=== PATIENT | female | born 1985 | race American Indian/Alaskan Native ===

== ENCOUNTER 2017-06-11 13:10 | Outpatient (CLI) | payer MEDICAID ==
[2017-06-11] MEDS ORDERED: LACTATED RINGERS 1,000 ML ONE (13:46)
[2017-06-11] MEDS ORDERED: LACTATED RINGERS 500 ML IV ONE (13:53)
[2017-06-11] MEDS ORDERED: BRETHINE SUB-Q ONE ×2 (15:17→18:38)
--- NOTE | 2017-06-11 17:09 | Ultrasound Report ---
FINAL REPORT PROCEDURE: US OB LIMITED TECHNIQUE: Real-time limited sonographic examination was performed for evaluation of cervix length CPT 11396 HISTORY: cervical length COMPARISON: No prior studies are available for comparison. FINDINGS: Twin intrauterine gestations are present however only the head of 1 of the fetus is visualized in the vertex presentation adjacent to the cervix. Cervix length is 3.2 centimeter. No funneling is visualized. No evidence of placenta previa. IMPRESSION: Cervix length 3.2 centimeter. No evidence of funneling or placenta previa. Twin pregnancies are present however only the head of 1 of the fetus is visualize, baby a in the vertex presentation.
[2017-06-11] MEDS ORDERED: PROCARDIA*For Tocolysis only PO ONE (18:36)
--- NOTE | 2017-06-11 19:08 | Ultrasound Report ---
FINAL REPORT EXAM: US OB BPP WO NON-STRESS HISTORY: PTL twins TECHNIQUE: Biophysical profile PRIORS: None currently available. FINDINGS: Twin pregnancies identified Baby A: Presentation: Cephalic. Head maternal right. heart rate: 141 BPM Largest vertical pocket: 8.4 cm. Borderline abnormal. Breathin Gross Body Movements: 2 Tone: 2 Qualitative AFV: 2 Baby B: Presentation: Transverse. heart rate: 156 BPM Largest vertical pocket: 5.6 cm. Within normal limits. Breathin Gross Body Movements: 2 Tone: 2 Qualitative AFV: 2 IMPRESSION: Baby A: Biophysical profile score 8/8. Largest vertical pocket: 8.4 cm. Borderline abnormal. Baby B: Biophysical profile score 8/8.
--- NOTE | 2017-06-11 19:08 | Ultrasound Report ---
FINAL REPORT EXAM: US OB BPP EA ADD EXAM HISTORY: PTL twins TECHNIQUE: Biophysical profile PRIORS: None currently available. FINDINGS: Twin pregnancies identified Baby A: Presentation: Cephalic. Head maternal right. heart rate: 141 BPM Largest vertical pocket: 8.4 cm. Borderline abnormal. Breathin Gross Body Movements: 2 Tone: 2 Qualitative AFV: 2 Baby B: Presentation: Transverse. heart rate: 156 BPM Largest vertical pocket: 5.6 cm. Within normal limits. Breathin Gross Body Movements: 2 Tone: 2 Qualitative AFV: 2 IMPRESSION: Baby A: Biophysical profile score 8/8. Largest vertical pocket: 8.4 cm. Borderline abnormal. Baby B: Biophysical profile score 8/8.
[2017-06-12] MEDS ORDERED: CELESTONE SOLUSPAN IM SCH (18:35)
== END 2017-06-11 19:53 | disposition home or self-care (01) ==
LOC: TRG 13:10
PROVIDERS: ATTEND Obstetrics & Gynecology
DX: O30.003 Twin pregnancy, unspecified number of placenta and unspecified number of amniotic sacs, third trimester (principal); O32.2XX2 Maternal care for transverse and oblique lie, fetus 2; O47.03 False labor before 37 completed weeks of gestation, third trimester; Z3A.29 29 weeks gestation of pregnancy
CPT/HCPCS: 36415; 59025; 76815; 76819; 82731; 96360; 96361; 96372; J3105; J7120

== ENCOUNTER 2017-06-12 23:49 | Outpatient (CLI) | payer MEDICAID ==
[2017-06-13] MEDS ORDERED: NACL 0.9% 1000 ML 1,000 ML ONE (00:48)
[2017-06-13] MEDS ORDERED: BRETHINE ONE (00:53)
[2017-06-13] MEDS ORDERED: BRETHINE SUB-Q SCH ×2 (01:30→02:37)
[2017-06-13] MEDS ORDERED: CELESTONE SOLUSPAN IM ONE ×2 (02:02→02:16)
[2017-06-13] MEDS: CELESTONE SOLUSPAN IM SCH (02:34)
[2017-06-13] MEDS ORDERED: AMBIEN PO PRN (02:36)
[2017-06-13] MEDS ORDERED: PROCARDIA*For Tocolysis only PO PRN (02:38)
[2017-06-13] MEDS ORDERED: MAGNESIUM SULFATE 40GM/1000ML 40 GM/1,000 ML BAG IV SCH ×2 (03:45→12:00)
[2017-06-13] MEDS ORDERED: ceFAZolin 2 GM in NACL 0.9% 100 ML IV ONE (03:48)
[2017-06-13] MEDS ORDERED: LACTATED RINGERS 1,000 ML IV SCH (04:00)
[2017-06-13] MEDS ORDERED: MAGNESIUM SULFATE 4GM/100ML 4 GM/100 ML BAG IV ONE (04:00)
[2017-06-13] MEDS ORDERED: ANCEF/STERILE WATER 2 GM/20 ML 2 GM/20 ML SYRINGE IV ONE (04:15)
[2017-06-13 05:57] LABS: Amphetamine Screen,Urine PRESUMPTIVE NEGATIVE; Benzodiazepines Screen,Urine PRESUMPTIVE NEGATIVE; Cannabinoid Screen,Urine PRESUMPTIVE NEGATIVE; Cocaine Screen,Urine PRESUMPTIVE NEGATIVE; Methadone Screen,Urine PRESUMPTIVE NEGATIVE; Opiate Screen,Urine PRESUMPTIVE NEGATIVE
--- NOTE | 2017-06-13 08:32 | Consultation ---
History of Present Illness Reason for consult: contractions (Patient is 32 y.o G 3P2 with ALISON of . Followed by [facility] for DI/DI twin gestations with Polyhydramnios and Twin B IUGR . Aiden presented to [facility] L+D with ctx. Reported ctx started 06/12/17 @ 2100. Patient denied VB, ABD pain, and SOB. Patient reported AFM x 2 . TOCO- Ctx Q 4-5 min while on MgSO4 1.5 mg /hr BMZ for FLM in progress. No US ordered by Primary OB ) Past History - Obstetrical History : 3 Medications and Allergies Allergies Allergy/AdvReac Type Severity Reaction Status Date / Time Latex, Natural Rubber Allergy Rash Verified 06/11/17 13:51 Home Medications Medication Instructions Recorded Confirmed Last Taken Type No Known Home Medications [No 06/13/17 06/13/17 Unknown History Reported Home Medications] Active Meds: Active Medications Betamethasone Acet/Betameth SodPhos (Celestone Soluspan) 12 mg IM Q24H AVEL Stop: 06/14/17 02:31 Lactated Ringer's (Lactated Ringers) 1,000 mls @ 125 mls/hr IV DIRECT AVEL Last Admin: 06/13/17 04:45 Dose: 125 mls/hr Magnesium Sulfate (Magnesium Sulfate 40gm/1000ml) 40 gm in 1,000 mls @ 37.5 mls /hr IV DIRECT AVEL Last Admin: 06/13/17 06:00 Dose: 1.5 gm/hr, 37.5 mls/hr Magnesium Sulfate (Magnesium Sulfate 40gm/1000ml) 40 gm in 1,000 mls @ 50 mls/ hr IV DIRECT AVEL Nifedipine (Procardia*For Tocolysis Only*) 10 mg PO Q6HR PRN PRN Reason: Labor Pain Terbutaline Sulfate (Brethine) 0.25 mg SUB-Q Q20MIN AVEL Stop: 06/15/17 01:01 Zolpidem Tartrate (Ambien) 10 mg PO QHS PRN PRN Reason: Insomnia Review of Systems Constitutional: no fever, no chills Eyes: deferred Ears, nose, mouth and throat: deferred Cardiovascular: no chest pain, no rapid/irregular heart beat, no edema, no shortness of breath, no high blood pressure Respiratory: no shortness of breath Gastrointestinal: no abdominal pain Genitourinary: no vaginal bleeding, no vaginal discharge, no leakage of fluid, no pelvic pain Rectal Exam: deferred Integumentary: no rash Neurological: no headaches Endocrine: no polyuria Allergic/Immunologic: no wheezing - Vital Signs Vital signs: Vital Signs Temp Pulse Resp BP Pulse Ox 98.0 F 102 H 12 107/62 97 06/13/17 06:00 06/13/17 06:00 06/13/17 06:00 06/13/17 06:00 06/13/17 06:00 Temp Pulse Resp BP Pulse Ox 97.8 F 94 H 18 108/65 98 06/13/17 07:56 06/13/17 07:56 06/13/17 07:56 06/13/17 07:56 06/13/17 07:56 - Physical Exam Breasts: Positive: deferred Cardiovascular: Regular rate Lungs: Positive: Normal air movement Abdomen: Negative: tenderness Uterus: Negative: tender Extremities: Negative: edema Deep Tendon Reflex Grade: Normal +2 - Obstetrical FHR: category 1 (For 29 weeks Twin gestation ) Uterine Contraction Monitor Mode: External Cervical Dilatation: 0 (closed per L+D staff ) Uterine Contraction Pattern: Irregular (4-5 min) Uterine Contraction Intensity: Mild Results All other labs normal. Assessment and Plan A: IUP 29.4 weeks DI/DI Twin gestation 06/07/17 [facility] Polyhydramnios assessment for Twin A and Twin B contractions while on MgSO4 1.5 mg /hr BMZ for FLM in progress 05/21/17 Twin A - SGA 05/21/17 Twin B - IUGR 05/21/17 Twin B with EIF Sequential Screen was initial performed by [facility] -NO result was provided History of previous C/S P: Given the current findings, the likelihood for imminent premature delivery appears UNCLEAR . RECOMMENDATIONS: 1. I am in agreement with admission and the administration of corticosteroids to enhance lung maturity. 2. As always, a complete check for urinary and cervico-vaginal infection should be pursued during this admission. Accordingly we would obtain and follow -up the results of a wet prep for bacterial vaginosis and a urine culture to rule out subclinical UTI and asymptomatic bacteriuria. 3. As always, I would abandon all attempts of tocolysis in the presence of and SVE > 5cm, SROM, unexplained vaginal bleeding or a non- reassuring heart rate pattern. 4. If discharged, this patient will require intermittent sonographic cervical follow-up as dictated by symptoms or until 34 weeks gestation. 5. Obtain PNR and all labs 6. Obtain BPP and growth for Twin gestation 7. Increase MgSO4 to 2 gm /hr 8. We will be happy to follow this patient with you. 9. Document GTT result
[2017-06-13] MEDS ORDERED: STADOL IV ONE (13:00)
--- NOTE | 2017-06-13 13:28 | History and Physical Report ---
History of Present Illness Date of examination: 06/13/17 Chief complaint: IUP @ 29 4/7 weeks; Twin gestation; PTL History of present illness: Pt is a 32yo BF EDC 08/25/17; EGA 29 4/7 weeks with Twin gestation, presented to [facility] L&D complaining of RUC's q 3-4 mins. She received care at [facility] since 19 weeks and also followed by [facility] for Twin gestation (Di/Di) with IUGR for Twin B. She has a history of previous C Section for previous twins. She has been started on Magnesium sulfate for tocolysis and currently on 2gm/hr, and Steroids for FLM, and still fabrice irregularly. She was seen by [facility] today, and records are available. 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 Family/Genetic History: hypertension Social history: no significant social history, single - Obstetrical History Expected Date of Delivery: 08/25/17 Actual Gestation: 29 Week(s) 4 Day(s) : 3 Medications and Allergies Allergies Allergy/AdvReac Type Severity Reaction Status Date / Time Latex, Natural Rubber Allergy Rash Verified 06/11/17 13:51 Home Medications Medication Instructions Recorded Confirmed Last Taken Type No Known Home Medications [No 06/13/17 06/13/17 Unknown History Reported Home Medications] Active Meds: Active Medications Betamethasone Acet/Betameth SodPhos (Celestone Soluspan) 12 mg IM Q24H AVEL Stop: 06/14/17 02:31 Lactated Ringer's (Lactated Ringers) 1,000 mls @ 125 mls/hr IV DIRECT AVEL Last Admin: 06/13/17 04:45 Dose: 125 mls/hr Magnesium Sulfate (Magnesium Sulfate 40gm/1000ml) 40 gm in 1,000 mls @ 37.5 mls /hr IV DIRECT AVEL Last Admin: 06/13/17 06:00 Dose: 1.5 gm/hr, 37.5 mls/hr Magnesium Sulfate (Magnesium Sulfate 40gm/1000ml) 40 gm in 1,000 mls @ 50 mls/ hr IV DIRECT AVEL Nifedipine (Procardia*For Tocolysis Only*) 10 mg PO Q6HR PRN PRN Reason: Labor Pain Terbutaline Sulfate (Brethine) 0.25 mg SUB-Q Q20MIN AVEL Stop: 06/15/17 01:01 Zolpidem Tartrate (Ambien) 10 mg PO QHS PRN PRN Reason: Insomnia Review of Systems All systems: negative - Vital Signs Vital signs: Vital Signs Temp Pulse Resp BP Pulse Ox 98.0 F 102 H 12 107/62 97 06/13/17 06:00 06/13/17 06:00 06/13/17 06:00 06/13/17 06:00 06/13/17 06:00 Temp Pulse Resp BP Pulse Ox 98.0 F 96 H 16 104/64 97 06/13/17 11:30 06/13/17 11:30 06/13/17 11:30 06/13/17 11:30 06/13/17 11:30 - Physical Exam Breasts: Positive: deferred Cardiovascular: Regular rate Lungs: Positive: Clear to auscultation Abdomen: Positive: normal appearance Genitourinary (Female): Positive: normal external genitalia Uterus: Positive: enlarged Adnexa: right: normal Extremities: Positive: normal - Obstetrical FHR: category 1 Uterine Contraction Monitor Mode: External Cervical Dilatation: 0 (per nurse) Cervical Effacement Percentage: 0 (per nurse) Uterine Contraction Pattern: Regular Uterine Tone Measurement Phase: Contraction Uterine Contraction Intensity: Moderate Results Abnormal lab results 06/13/17 Range/Units 10:30 Magnesium 4.50 H (1.7-2.3) mg/dL All other labs normal. Ultrasound: report reviewed (Twin A - Cephalic, EFW 1282gms; Twin B - Transverse , EFW 1298gms) Assessment and Plan - Patient Problems (1) 29 weeks gestation of Onset Date: 06/13/17 Current Visit: Yes Status: Acute Plan to address problem: A: IUP 29 4/7 weeks DI/DI Twin gestation - 05/21/17 Twin A - SGA 05/21/17 Twin B - IUGR 05/21/17 Twin B with EIF 06/07/17 u/s with [facility] Polyhydramnios assessment for Twin A and Twin B contractions while on MgSO4 1.5 mg /hr BMZ for FLM in progress P: Admit to L&D for IV hydration, IV tocolysis, steroids and antibiotics Will increase Magnesium sulfate to 2gm/hr Appreciate [facility] consultation (2) Twin gestation in third trimester Onset Date: 06/13/17 Current Visit: Yes Status: Acute Qualifiers: Multiple gestation type: dichorionic and diamniotic Qualified Code(s): O30.043 - Twin , dichorionic/diamniotic, third trimester
--- NOTE | 2017-06-13 18:02 | Event Note ---
Date: 06/13/17 Assumed care of above. The patient is 32-year-old at 29 weeks with Di Di twins. Patient admitted for concerns about labor, she was started on magnesium and Celestone course in progress. also complicated by IUGR from sonograms obtained in May 2012. She is being followed by M. She was seen in triage on 06/11/2017 with similar complaints. BPP obtained then was 8 out of 8, Baby A is cephalic and Baby B is transverse. She was discharged home on Procardia. On present admission, MFM consult today reviewed. She is status post Celestone course #1 yesterday at 2 AM and will complete series tomorrow at 2 AM She is on magnesium at 2 g per hour Growth scan obtained, await official radiology report. Wet prep is negative Currently has category 1 tracing with occasional intermittent contractions on toco (asymptomatic) Discussed briefly plan of care with patient. Will complete Celestone course tomorrow AM and consider discontinuing magnesium soon after. We'll observe patient for 24 hours in-house and then discharge home if remains stable Discussed briefly permanent sterilization. Discussed risks and issues related to this. Reviewed other methods of conception including long-acting reversible contraception. 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 She will think about this and decide on an option later.
[2017-06-13] MEDS: TYLENOL PO PRN (19:44)
[2017-06-13] MEDS ORDERED: NORMOSOL-R PH 7.4 1,000 ML IV ONE (23:49)
[2017-06-14] MEDS: CELESTONE SOLUSPAN IM SCH (02:34)
--- NOTE | 2017-06-14 07:49 | Ultrasound Report ---
OB ULTRASOUND GREATER THAN 14 WEEKS - TWINS INDICATION: labor. Twin . COMPARISON: 06/11/2017 TECHNIQUE: Transabdominal grayscale ultrasound with Doppler interrogation. BABY A: Gestation: Twin A Position: Cephalic Amniotic Fluid: Twin - Largest vertical pocket 5 cm (2-8 cm Normal) Placenta: Anterior, right lateral Placental Grade: I Heart Rate: 130 BPM ANATOMY VISUALIZED: Stomach Bladder Diaphragm 4 Chamber Heart Heart 3 Vessel Cord Abd. Cord Insert SPINE VISUALIZED: Limited spine due to position The following are not demonstrated due to maternal body habitus or lie: Neuroanatomy, kidneys, spine BPD: 7.6 cm = 30 w 3 d HC: 28.4 cm = 31 w 1 d AC: 24.4 cm = 28 w 4 d FL: 5.3 cm = 28 w 0 d HC/AC Ratio: 1.17 Cephalic Index: 79.8 Estimated Weight: 1282 grams LMP: 11/18/2016 Clinical age = 29 w 4 d EDC: 08/25/2017 US Gest. Age = 29 w 4 d EDC: 08/25/2017 BABY B: Gestation: Twin B Position: Transverse, head maternal left Amniotic Fluid: Twin - Largest vertical pocket 5.1 cm (2-8 cm Normal) Placenta: Anterior, right lateral Placental Grade: I Heart Rate: 139 BPM NEUROANATOMY VISUALIZED: Choroid Plexus Cisterna Magnum Cerebellum ANATOMY VISUALIZED: Bladder Diaphragm 4 Chamber Heart Heart 3 Vessel Cord Abd. Cord Insert SPINE VISUALIZED: Limited spine due to position The following are not demonstrated due to maternal body habitus or lie: Lateral ventricle, stomach, kidneys, spine BPD: 7.7 cm = 31 w 0 d HC: 27.9 cm = 30 w 4 d AC: 24.3 cm = 28 w 4 d FL: 5.4 cm = 28 w 3 d HC/AC Ratio: 1.15 Cephalic Index: 88.1 Estimated Weight: 1298 grams LMP: 11/18/2016 Clinical age = 29 w 4 d EDC: 08/25/2017 US Gest. Age = 29 w 5 d EDC: 08/24/2017 CONCLUSION: Twin, viable intrauterine gestations with details, as above. Thank you for the opportunity to participate in this patient's care.
--- NOTE | 2017-06-14 09:03 | Consultation ---
History of Present Illness Reason for consult: other ( contractions (Patient is 32 y.o G 3P2 29.5 weeks with ALISON of 08/25/17 . Followed by [facility] for DI/DI twin gestations with Polyhydramnios and Twin B IUGR . On 06/12/17 presented to [facility] L+D with ctx . Reported ctx started 06/12/17 @ 2100. Patient denied VB, ABD pain, and SOB. Patient reported AFM x 2 . Reported Occ CtX TOCO- Under no MgSO4 -Occ contractions BMZ for FLM completed . 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 Family/Genetic History: hypertension - Obstetrical History : 3 Medications and Allergies Allergies Allergy/AdvReac Type Severity Reaction Status Date / Time Latex, Natural Rubber Allergy Rash Verified 06/11/17 13:51 Home Medications Medication Instructions Recorded Confirmed Last Taken Type No Known Home Medications [No 06/13/17 06/13/17 Unknown History Reported Home Medications] Active Meds: Active Medications Acetaminophen (Tylenol) 650 mg PO Q6H PRN PRN Reason: Pain, Mild (1-3) Last Admin: 06/13/17 19:44 Dose: 650 mg Lactated Ringer's (Lactated Ringers) 1,000 mls @ 125 mls/hr IV DIRECT AVEL Last Admin: 06/13/17 04:45 Dose: 125 mls/hr Magnesium Sulfate (Magnesium Sulfate 40gm/1000ml) 40 gm in 1,000 mls @ 37.5 mls /hr IV DIRECT AVEL Last Infusion: 06/14/17 03:55 Dose: 1 gm/hr, 25 mls/hr Magnesium Sulfate (Magnesium Sulfate 40gm/1000ml) 40 gm in 1,000 mls @ 50 mls/ hr IV DIRECT AVEL Last Admin: 06/14/17 02:20 Dose: 2 gm/hr, 50 mls/hr Terbutaline Sulfate (Brethine) 0.25 mg SUB-Q Q20MIN AVEL Stop: 06/15/17 01:01 Zolpidem Tartrate (Ambien) 10 mg PO QHS PRN PRN Reason: Insomnia Review of Systems Constitutional: no fever Eyes: no blurred vision, no photophobia Ears, nose, mouth and throat: deferred Cardiovascular: no rapid/irregular heart beat, no edema, no syncope, no shortness of breath Respiratory: no shortness of breath Gastrointestinal: no abdominal pain, no nausea, no vomiting Genitourinary: contractions (occasional ), no vaginal bleeding, no vaginal discharge, no pelvic pain Rectal Exam: deferred Musculoskeletal: no low back pain Integumentary: no rash Neurological: no headaches Endocrine: no polyuria Hematologic/Lymphatic: no easy bruising, no easy bleeding - Vital Signs Vital signs: Vital Signs Temp Pulse Resp BP Pulse Ox 98.0 F 102 H 12 107/62 97 06/13/17 06:00 06/13/17 06:00 06/13/17 06:00 06/13/17 06:00 06/13/17 06:00 Temp Pulse Resp BP Pulse Ox 98.0 F 98 H 12 95/53 96 06/13/17 19:05 06/14/17 00:33 06/13/17 19:05 06/14/17 00:33 06/13/17 19:05 - Physical Exam Breasts: Positive: deferred Cardiovascular: Regular rate Lungs: Positive: Normal air movement Abdomen: Negative: tenderness, guarding Uterus: Negative: tender Extremities: Negative: tenderness Deep Tendon Reflex Grade: Normal +2 - Obstetrical FHR: category 1 (for 29 weeks ) Uterine Contraction Monitor Mode: External Uterine Contraction Pattern: Irregular (Occasional) Uterine Contraction Intensity: Mild Results Abnormal lab results 06/13/17 06/13/17 06/14/17 Range/Units 10:30 18:24 01:59 Magnesium 4.50 H 5.60 H 5.90 H (1.7-2.3) mg/dL 06/14/17 Range/Units 05:49 Magnesium 5.70 H (1.7-2.3) mg/dL All other labs normal. Ultrasound: report reviewed (Please see chart for [facility] for full report for Twin A and Twin B ) Assessment and Plan A: IUP 29.5 weeks DI/DI Twin gestation 06/07/17 [facility] Polyhydramnios assessment for Twin A and Twin B 06/12/17 [facility] Reassuring MVP for Twin A and Twin B . Polyhydramnos resolved While under no MgSO4 Occasional contractions reported BMZ for FLM completed 05/21/17 Twin A - SGA 05/21/17 Twin B - IUGR 06/14/17 [facility] Twin B SGA with EFW 15% 3 [facility] Twin A SGA with EFW 13% 05/21/17 Twin B with EIF Sequential Screen was initial performed by [facility] -NO result was provided History of previous C/S Twin presentation - VTX/ Transverse P: Given the current findings, the likelihood for imminent premature delivery appears UNCLEAR . RECOMMENDATIONS: 1. I am in agreement with continued admission . 2. As always, a complete check for urinary and cervico-vaginal infection should be pursued during this admission. Accordingly we would obtain and follow -up the results of a wet prep for bacterial vaginosis and a urine culture to rule out subclinical UTI and asymptomatic bacteriuria. 3. As always, I would abandon all attempts of tocolysis in the presence of and SVE > 5cm, SROM, unexplained vaginal bleeding or a non- reassuring heart rate pattern. 4. If discharged, this patient will require intermittent sonographic cervical follow-up as dictated by symptoms or until 34 weeks gestation. 5. Obtain PNR and all labs please include [facility] records 6. We will be happy to follow this patient with you. 9. Document GTT result
--- NOTE | 2017-06-14 10:28 | Progress Note ---
Assessment and Plan - Patient Problems (1) 29 weeks gestation of Current Visit: Yes Status: Acute (2) Twin gestation in third trimester Current Visit: Yes Status: Acute (3) contractions Current Visit: Yes Status: Acute Plan to address problem: [facility] consult was done. Celestone series completed. Magnesium discontinued. Will continue and toco monitoring for another 24 hours off the magnesium. Will monitor cervical changes if patient has contractions. Findings were discussed with the patient. (4) Previous section Current Visit: Yes Status: Acute Plan to address problem: Patient did want , but she was told that baby B is in a transverse lie. If delivery becomes necessary, she will need a repeat C/section due to gestation and lie. She says that she would agree with whatever is recommended. Subjective - Subjective Date of service: 06/14/17 Principal diagnosis: Twins gestation at 29 weeks with contractions. Interval history: Patient was admitted early on 06/13 for contractions. On admission, she was fabrice every 3-4 mins and tracing were reassuring. Sonogram showed baby A to be VTX and SGA and B to be transverse and IUGR. She was given celestone for FLM, 2 doses completed this AM, magnesium sulfate which was discontinued this AM, IV antibiotics. Cervical cultures were negative. [facility] saw the patient this AM and recommended continued and toco monitoring for another 24 hours. This AM, patient denies any frequent contraction, but reports occasional cramps. She denies any fluid leakage or bleeding. Cervix: closed/80%/-2. Objective - Vital Signs Vital Signs: Vital Signs - 12hr 06/13/17 06/13/17 06/14/17 22:33 23:34 00:03 Temperature Pulse Rate 100 H 93 H 98 H Respiratory Rate Blood Pressure 100/58 88/53 90/55 [Right] 06/14/17 06/14/17 00:33 08:45 Temperature 97.8 F Pulse Rate 98 H 101 H Respiratory 16 Rate Blood Pressure 95/53 92/55 [Right] - Exam Cardiovascular: Normal S1, Normal S2 Lungs: Clear to auscultation Vulva: both: normal FHR: category 1 Uterine Contraction Monitor Mode: External Cervical Dilatation: 0 Cervical Effacement Percentage: 80 station: -2 Uterine Contraction Pattern: Irregular Uterine Contraction Intensity: Mild Deep Tendon Reflex Grade: Normal +2 - Labs Labs: Abnormal Labs 06/13/17 06/13/17 06/14/17 10:30 18:24 01:59 Magnesium 4.50 H 5.60 H 5.90 H 06/14/17 05:49 Magnesium 5.70 H Laboratory Results - last 24 hr 06/13/17 06/13/17 06/14/17 10:30 18:24 01:59 Magnesium 4.50 H 5.60 H 5.90 H 06/14/17 05:49 Magnesium 5.70 H
[2017-06-14 10:54] LABS: Bacteria,Urine 1+ /HPF (Negative); Bilirubin,Urine NEG (Negative); Blood,Urine MOD (Negative); Color,Urine Yellow (Yellow); Mucus,Urine FEW /HPF; Protein,Urine <15 mg/dL mg/dL (Negative); Urobilinogen,Urine < 2.0 mg/dL (<2.0); WBC,Urine < 1.0 /HPF (0.0-6.0)
[2017-06-14] MEDS: NORMOSOL-R PH 7.4 1,000 ML IV SCH (15:40)
[2017-06-14] MEDS ORDERED: NORMOSOL-R PH 7.4 1,000 ML IV ONE (15:42)
[2017-06-15] MEDS: NORMOSOL-R PH 7.4 1,000 ML IV SCH ×3 (10:06→21:22)
[2017-06-15] MEDS ORDERED: TYLENOL PO ONE (10:20)
[2017-06-15] MEDS ORDERED: BRETHINE SUB-Q ONE (11:53)
--- NOTE | 2017-06-15 12:02 | Progress Note ---
Assessment and Plan - Patient Problems (1) 29 weeks gestation of Current Visit: Yes Status: Acute (2) Twin gestation in third trimester Current Visit: Yes Status: Acute Qualifiers: Multiple gestation type: dichorionic and diamniotic Qualified Code(s): O30.043 - Twin , dichorionic/diamniotic, third trimester (3) contractions Current Visit: Yes Status: Acute Plan to address problem: [facility] consult was done. Celestone series completed. Magnesium discontinued. Since contractions have returned, will give terbutakine x 1 dose followed by procardia every 4 hrs. Patient was told that if she does not respond to these meds, will restart magnesium. Will continue and toco monitoring for another 24 hours off the magnesium. BPP today. Will monitor cervical changes if contractions get worse. Findings were discussed with the patient. (4) Previous section Current Visit: Yes Status: Acute Plan to address problem: Patient did want , but she was told that baby B is in a transverse lie. If delivery becomes necessary, she will need a repeat C/section due to gestation and lie. She says that she would agree with whatever is recommended. Subjective - Subjective Date of service: 06/15/17 Principal diagnosis: Twins gestation at 29 weeks with contractions. Interval history: Patient was admitted early on 06/13 for contractions. On admission, she was fabrice every 3-4 mins and tracing were reassuring. Sonogram showed baby A to be VTX and SGA and B to be transverse and IUGR. She was given celestone for FLM, 2 doses completed, magnesium sulfate which was discontinued yesterday, and IV antibiotics. Cervical cultures were negative. [facility] saw the patient and recommended continued and toco monitoring for 24 hours after magnesium. This AM, patient complains of having irregular contractions but they have been mild and have not increased in intensity. She denies any fluid leakage or bleeding. Cervix: closed/80%/-2, unchanged from yesterday morning. Objective - Vital Signs Vital Signs: Vital Signs - 12hr 06/15/17 06/15/17 06/15/17 01:34 01:41 01:42 Temperature Pulse Rate 97 H 100 H 106 H Respiratory Rate Blood Pressure 87/51 98/53 Blood Pressure [Right] O2 Sat by Pulse 97 Oximetry 06/15/17 06/15/17 06/15/17 01:50 01:55 02:00 Temperature Pulse Rate 117 H 97 H 102 H Respiratory Rate Blood Pressure Blood Pressure [Right] O2 Sat by Pulse 97 97 95 Oximetry 06/15/17 06/15/17 06/15/17 02:01 02:05 02:10 Temperature Pulse Rate 107 H 100 H 95 H Respiratory Rate Blood Pressure Blood Pressure [Right] O2 Sat by Pulse 86 97 97 Oximetry 06/15/17 06/15/17 06/15/17 02:15 02:20 02:25 Temperature Pulse Rate 100 H 100 H 95 H Respiratory Rate Blood Pressure Blood Pressure [Right] O2 Sat by Pulse 96 96 94 Oximetry 06/15/17 06/15/17 06/15/17 02:30 02:35 02:40 Temperature Pulse Rate 102 H 104 H 102 H Respiratory Rate Blood Pressure Blood Pressure [Right] O2 Sat by Pulse 95 97 97 Oximetry 06/15/17 06/15/17 06/15/17 02:45 02:50 02:55 Temperature Pulse Rate 102 H 99 H 107 H Respiratory Rate Blood Pressure Blood Pressure [Right] O2 Sat by Pulse 97 96 97 Oximetry 06/15/17 06/15/17 06/15/17 03:00 03:05 03:10 Temperature Pulse Rate 104 H 105 H 97 H Respiratory Rate Blood Pressure Blood Pressure [Right] O2 Sat by Pulse 96 96 97 Oximetry 06/15/17 06/15/17 06/15/17 03:15 03:20 03:25 Temperature Pulse Rate 97 H 101 H 98 H Respiratory Rate Blood Pressure Blood Pressure [Right] O2 Sat by Pulse 97 97 96 Oximetry 06/15/17 06/15/17 06/15/17 03:30 03:35 03:40 Temperature Pulse Rate 99 H 96 H 106 H Respiratory Rate Blood Pressure Blood Pressure [Right] O2 Sat by Pulse 97 96 97 Oximetry 06/15/17 06/15/17 06/15/17 03:45 03:50 03:55 Temperature Pulse Rate 100 H 99 H 102 H Respiratory Rate Blood Pressure Blood Pressure [Right] O2 Sat by Pulse 95 96 96 Oximetry 06/15/17 06/15/17 06/15/17 04:00 04:05 04:10 Temperature Pulse Rate 100 H 99 H 97 H Respiratory Rate Blood Pressure Blood Pressure [Right] O2 Sat by Pulse 96 95 95 Oximetry 06/15/17 06/15/17 06/15/17 04:24 04:27 04:29 Temperature Pulse Rate 98 H 32 L 103 H Respiratory Rate Blood Pressure Blood Pressure [Right] O2 Sat by Pulse 98 89 94 Oximetry 06/15/17 06/15/17 06/15/17 04:34 04:39 04:44 Temperature Pulse Rate 100 H 106 H 104 H Respiratory Rate Blood Pressure Blood Pressure [Right] O2 Sat by Pulse 99 97 97 Oximetry 06/15/17 06/15/17 06/15/17 04:49 04:54 04:59 Temperature Pulse Rate 106 H 106 H 98 H Respiratory Rate Blood Pressure Blood Pressure [Right] O2 Sat by Pulse 97 97 97 Oximetry 06/15/17 06/15/17 06/15/17 05:04 05:09 05:10 Temperature Pulse Rate 102 H 103 H 99 H Respiratory Rate Blood Pressure Blood Pressure [Right] O2 Sat by Pulse 96 96 94 Oximetry 06/15/17 06/15/17 06/15/17 05:14 05:16 05:19 Temperature Pulse Rate 101 H 92 H 94 H Respiratory Rate Blood Pressure Blood Pressure [Right] O2 Sat by Pulse 95 94 96 Oximetry 06/15/17 06/15/17 06/15/17 05:24 05:29 05:31 Temperature Pulse Rate 99 H 97 H 96 H Respiratory Rate Blood Pressure Blood Pressure [Right] O2 Sat by Pulse 96 95 94 Oximetry 06/15/17 06/15/17 06/15/17 05:34 05:38 05:39 Temperature Pulse Rate 99 H 99 H 96 H Respiratory Rate Blood Pressure Blood Pressure [Right] O2 Sat by Pulse 95 94 95 Oximetry 06/15/17 06/15/17 06/15/17 05:44 05:49 05:50 Temperature Pulse Rate 100 H 101 H 103 H Respiratory Rate Blood Pressure Blood Pressure [Right] O2 Sat by Pulse 95 95 94 Oximetry 06/15/17 06/15/17 06/15/17 05:54 05:59 06:00 Temperature Pulse Rate 103 H 97 H 92 H Respiratory Rate Blood Pressure Blood Pressure [Right] O2 Sat by Pulse 95 95 94 Oximetry 06/15/17 06/15/17 06/15/17 06:04 06:09 06:14 Temperature Pulse Rate 110 H 93 H 98 H Respiratory Rate Blood Pressure Blood Pressure [Right] O2 Sat by Pulse 96 95 95 Oximetry 06/15/17 06/15/17 06/15/17 06:19 06:24 06:26 Temperature Pulse Rate 92 H 95 H 97 H Respiratory Rate Blood Pressure Blood Pressure [Right] O2 Sat by Pulse 96 95 94 Oximetry 06/15/17 06/15/17 06/15/17 06:29 06:34 06:39 Temperature Pulse Rate 99 H 93 H 98 H Respiratory Rate Blood Pressure Blood Pressure [Right] O2 Sat by Pulse 95 96 96 Oximetry 06/15/17 06/15/17 06/15/17 06:42 07:40 07:46 Temperature 99.1 F Pulse Rate 101 H 93 H 93 H Respiratory 16 Rate Blood Pressure 103/60 Blood Pressure 103/60 [Right] O2 Sat by Pulse 94 Oximetry 06/15/17 06/15/17 06/15/17 10:28 11:03 11:06 Temperature 98.5 F Pulse Rate 107 H 107 H Respiratory 16 16 Rate Blood Pressure 105/60 Blood Pressure 105/60 [Right] O2 Sat by Pulse 98 Oximetry 06/15/17 11:08 Temperature Pulse Rate 107 H Respiratory Rate Blood Pressure Blood Pressure [Right] O2 Sat by Pulse 83 L Oximetry - Exam Cardiovascular: Normal S1, Normal S2 Lungs: Clear to auscultation Vulva: both: normal FHR: category 1 Uterine Contraction Monitor Mode: External Cervical Dilatation: 0 Cervical Effacement Percentage: 80 station: -2 Uterine Contraction Pattern: Irregular Uterine Contraction Intensity: Mild Deep Tendon Reflex Grade: Normal +2 - Labs Labs: Abnormal Labs 06/13/17 06/13/17 06/14/17 10:30 18:24 01:59 Magnesium 4.50 H 5.60 H 5.90 H 06/14/17 05:49 Magnesium 5.70 H
[2017-06-15] MEDS: PROCARDIA*For Tocolysis only PO SCH ×3 (15:34→23:21)
[2017-06-15] MEDS: TYLENOL PO PRN (19:20)
[2017-06-15] MEDS: AUGMENTIN 875 MG PO SCH (23:21)
[2017-06-16] MEDS: NORMOSOL-R PH 7.4 1,000 ML IV SCH ×4 (03:50→22:53)
[2017-06-16] MEDS: PROCARDIA*For Tocolysis only PO SCH ×6 (03:50→22:26)
--- NOTE | 2017-06-16 09:58 | Ultrasound Report ---
ULTRASOUND BIOPHYSICAL PROFILE: History: well being, labor, twin gestation Technique: Transabdominal ultrasound with Doppler interrogation. Baby A 2 - breathing movements 2 - movements 2 - posture and tone 2 - Qualitative amniotic fluid volume 8 - TOTAL SCORE OF POSSIBLE 8 Heart Rate (bpm) 141 ULTRASOUND BIOPHYSICAL PROFILE: Baby B 2 - breathing movements 2 - movements 2 - posture and tone 2 - Qualitative amniotic fluid volume 8 - TOTAL SCORE OF POSSIBLE 8 Heart Rate (bpm) 164
[2017-06-16] MEDS: PRENATAL VITAMIN PO SCH (10:01)
[2017-06-16] MEDS: AUGMENTIN 875 MG PO SCH ×2 (10:01→22:26)
--- NOTE | 2017-06-16 12:23 | Progress Note ---
Assessment and Plan - Patient Problems (1) Twin gestation in third trimester Status: Acute Qualifiers: Multiple gestation type: dichorionic and diamniotic Qualified Code(s): O30.043 - Twin , dichorionic/diamniotic, third trimester (2) contractions Status: Acute Plan to address problem: [facility] consult was done. Celestone series completed. Magnesium discontinued. Since contractions have returned, will give terbutakine x 1 dose followed by procardia every 4 hrs. Patient was told that if she does not respond to these meds, will restart magnesium. Will continue and toco monitoring for another 24 hours off the magnesium. BPP today. Will monitor cervical changes if contractions get worse. Findings were discussed with the patient. (3) Previous section Status: Acute Plan to address problem: Patient did want , but she was told that baby B is in a transverse lie. If delivery becomes necessary, she will need a repeat C/section due to gestation and lie. She says that she would agree with whatever is recommended. (4) Sinusitis, acute Status: Acute Plan to address problem: Continue augmentin BID. (5) 30 weeks gestation of Status: Acute Subjective - Subjective Date of service: 06/16/17 Principal diagnosis: Twins gestation at 29 weeks with contractions. Interval history: Patient was admitted early on 06/13 for contractions. On admission, she was fabrice every 3-4 mins and tracing were reassuring. Sonogram showed baby A to be VTX and SGA and B to be transverse and IUGR. She was given celestone for FLM, 2 doses completed, magnesium sulfate which was discontinued 2 days ago, and IV antibiotics. Cervical cultures were negative. [facility] saw the patient and recommended continued and toco monitoring for 24 hours after magnesium. Yesterday, the patient complained of having irregular contractions but they have been mild and have not increased in intensity. She denied any fluid leakage or bleeding. Cervix: closed/80%/-2, unchanged from 2 days ago. Last night, she developed a low grade fever. At that time, she also complained of pain in her ears and face and she has been dealing with a toothache for several days now. Urinalysis was negative. Urine culture pending. She was started on augmentin BID. Objective - Vital Signs Vital Signs: Vital Signs - 12hr 06/15/17 06/15/1706/15/18 23:23 23:25 23:27 Temperature 98.7 F Pulse Rate 114 H 109 H 115 H Respiratory 18 Rate Blood Pressure 103/52 Blood Pressure 103/52 [Right] O2 Sat by Pulse 96 96 Oximetry 06/15/17 06/15/17 06/15/17 23:30 23:35 23:40 Temperature Pulse Rate 109 H 110 H 108 H Respiratory Rate Blood Pressure Blood Pressure [Right] O2 Sat by Pulse 98 96 96 Oximetry 06/15/17 06/15/17 06/15/17 23:45 23:50 23:55 Temperature Pulse Rate 107 H 104 H 103 H Respiratory Rate Blood Pressure Blood Pressure [Right] O2 Sat by Pulse 96 96 96 Oximetry 06/16/17 06/16/17 06/16/17 00:05 00:06 00:10 Temperature Pulse Rate 122 H 104 H Respiratory Rate Blood Pressure Blood Pressure [Right] O2 Sat by Pulse 98 94 96 Oximetry 06/16/17 06/16/17 06/16/17 00:15 00:20 00:25 Temperature Pulse Rate 107 H 105 H 100 H Respiratory Rate Blood Pressure Blood Pressure [Right] O2 Sat by Pulse 95 95 95 Oximetry 06/16/17 06/16/17 06/16/17 00:30 00:31 00:35 Temperature Pulse Rate 102 H 103 H 100 H Respiratory Rate Blood Pressure Blood Pressure [Right] O2 Sat by Pulse 95 94 95 Oximetry 06/16/17 06/16/17 06/16/17 00:37 00:40 00:44 Temperature Pulse Rate 99 H 108 H 98 H Respiratory Rate Blood Pressure Blood Pressure [Right] O2 Sat by Pulse 94 94 94 Oximetry 06/16/17 06/16/17 06/16/17 00:45 03:59 04:00 Temperature Pulse Rate 97 H 82 84 Respiratory Rate Blood Pressure 83/47 87/51 Blood Pressure [Right] O2 Sat by Pulse 96 Oximetry 06/16/17 06/16/17 06/16/17 04:02 04:45 05:48 Temperature Pulse Rate 84 95 H 91 H Respiratory Rate Blood Pressure 84/45 101/61 Blood Pressure [Right] O2 Sat by Pulse 99 Oximetry 06/16/17 06/16/17 06/16/17 05:53 08:01 08:03 Temperature 98.2 F Pulse Rate 91 H 84 Respiratory 18 Rate Blood Pressure 94/63 Blood Pressure [Right] O2 Sat by Pulse 98 Oximetry 06/16/17 10:04 Temperature Pulse Rate 100 H Respiratory Rate Blood Pressure 92/55 Blood Pressure [Right] O2 Sat by Pulse Oximetry - Exam Cardiovascular: Normal S1, Normal S2 Lungs: Clear to auscultation Vulva: both: normal FHR: category 1 Uterine Contraction Monitor Mode: External Uterine Contraction Pattern: Absent Deep Tendon Reflex Grade: Normal +2 - Labs Labs: Abnormal Labs 06/13/17 06/13/17 06/14/17 10:30 18:24 01:59 Magnesium 4.50 H 5.60 H 5.90 H 06/14/17 05:49 Magnesium 5.70 H
[2017-06-16 14:24] LABS: Hematocrit 29.3 % (30.3-42.9); Hemoglobin 9.8 gm/dl (10.1-14.3); Mean Corpuscular Hemoglobin 30 pg (28-32); Mean Corpuscular Volume 90 fl (79-97); Red Blood Count 3.27 M/mm3 (3.65-5.03)
[2017-06-16 14:25] LABS: Mean Corpuscular HGB Conc 34 % (30-34); Mean Platelet Volume 8.7 fl (6-12); Platelet Count 142 K/mm3 (140-440); Red Cell Distribution Width 14.3 % (13.2-15.2)
[2017-06-16 15:21] LABS: Band Neutrophils # (Manual) 0.3 K/mm3; Basophils % (Manual) 0 % (0.0-1.8); Eosinophils % (Manual) 0 % (0.0-4.3); Total Cells Counted 100
[2017-06-16 15:22] LABS: Large Platelets Few; RBC Morphology Normal
[2017-06-16] MEDS: TYLENOL PO PRN ×2 (18:37→22:27)
[2017-06-16] MEDS ORDERED: BRETHINE SUB-Q ONE (20:41)
[2017-06-17] MEDS: PROCARDIA*For Tocolysis only PO SCH ×5 (02:00→20:00)
[2017-06-17] MEDS: NORMOSOL-R PH 7.4 1,000 ML IV SCH (06:28)
--- NOTE | 2017-06-17 09:03 | Consultation ---
History of Present Illness Reason for consult: other ((Patient is 32 y.o G 3P2 29.5 weeks with ALISON of . Followed by [facility] for DI/DI twin gestations with Polyhydramnios and Twin B IUGR . On 06/12/17 presented to [facility] L+D with ctx . Reported ctx started @ 2100. Patient denied VB, ABD pain, and SOB. Patient reported AFM x 2 . Under no MgSO4 Reported Ctx resumed on 06/15/17 Reported occ contractions TOCO - Under Procardia -Occ contractions BMZ for FLM completed .MgSO4 was completed BPP was performed by [facility] on 06/15/17 ) Past History Past Medical History: no pertinent history Past Surgical History: section [employer] History: abnormal PAP smear Family/Genetic History: hypertension - Obstetrical History : 3 Medications and Allergies Allergies Allergy/AdvReac Type Severity Reaction Status Date / Time Latex, Natural Rubber Allergy Rash Verified 06/11/17 13:51 Home Medications Medication Instructions Recorded Confirmed Last Taken Type No Known Home Medications [No 06/13/17 06/13/17 Unknown History Reported Home Medications] Active Meds: Active Medications Acetaminophen (Tylenol) 650 mg PO Q6H PRN PRN Reason: Pain, Mild (1-3) Last Admin: 06/16/17 18:37 Dose: 650 mg Acetaminophen (Tylenol) 650 mg PO Q4H PRN PRN Reason: Pain, Mild (1-3) Last Admin: 06/16/17 22:27 Dose: 650 mg Amoxicillin/Clavulanate Potassium (Augmentin 875 Mg) 1 each PO Q12HR AVEL Last Admin: 06/16/17 22:26 Dose: 1 each Lactated Ringer's (Lactated Ringers) 1,000 mls @ 125 mls/hr IV DIRECT AVEL Last Admin: 06/13/17 04:45 Dose: 125 mls/hr Magnesium Sulfate (Magnesium Sulfate 40gm/1000ml) 40 gm in 1,000 mls @ 37.5 mls /hr IV DIRECT AVEL Last Infusion: 06/14/17 03:55 Dose: 1 gm/hr, 25 mls/hr Magnesium Sulfate (Magnesium Sulfate 40gm/1000ml) 40 gm in 1,000 mls @ 50 mls/ hr IV DIRECT AVEL Last Admin: 06/14/17 02:20 Dose: 2 gm/hr, 50 mls/hr Parenteral Electrolytes (Normosol-R Ph 7.4) 1,000 mls @ 125 mls/hr IV DIRECT [facility] Last Admin: 06/17/17 06:28 Dose: 125 mls/hr Multivitamins/Iron/Calcium ( Vitamin) 1 each PO QDAY [facility] Last Admin: 06/16/17 10:01 Dose: 1 each Nifedipine (Procardia*For Tocolysis Only*) 20 mg PO Q4HR [facility] Last Admin: 06/17/17 06:27 Dose: 20 mg Zolpidem Tartrate (Ambien) 10 mg PO QHS PRN PRN Reason: Insomnia Last Admin: 06/14/17 22:43 Dose: 10 mg Review of Systems Constitutional: no fever, no chills Ears, nose, mouth and throat: sinus pressure, sinus pain (feeling better ), other (Currently under medical treatment for sinusitis ) Respiratory: no cough, no shortness of breath Breasts: deferred Gastrointestinal: no nausea, no vomiting Genitourinary: no vaginal bleeding, no vaginal discharge, no leakage of fluid, no contractions Rectal Exam: deferred Integumentary: no rash Neurological: no headaches Hematologic/Lymphatic: no easy bruising - Vital Signs Vital signs: Vital Signs Pulse BP 108 H 117/75 06/13/17 00:09 06/13/17 00:09 Temp Pulse Resp BP Pulse Ox 97.7 F 96 H 18 96/54 96 06/17/17 03:00 06/17/17 09:02 06/17/17 03:00 06/17/17 03:03 06/17/17 09:02 - Physical Exam Breasts: Positive: deferred Cardiovascular: Regular rate Lungs: Positive: Normal air movement Abdomen: Negative: tenderness, guarding Uterus: Negative: tender Extremities: Negative: tenderness Deep Tendon Reflex Grade: Normal +2 - Obstetrical FHR: category 1 Uterine Contraction Monitor Mode: Internal Cervical Dilatation: 0 (per OB SVE ) Uterine Contraction Pattern: Irregular Uterine Contraction Intensity: Mild Results Result Diagrams: 06/16/17 14:12 Abnormal lab results 06/16/17 Range/Units 14:12 RBC 3.27 L (3.65-5.03) M/mm3 Hgb 9.8 L (10.1-14.3) gm/dl Hct 29.3 L (30.3-42.9) % Monocytes % (Manual) 10.0 H (0.0-7.3) % Monocytes # (Manual) 1.0 H (0.0-0.8) K/mm3 All other labs normal. Ultrasound: report reviewed (06/15/17 [facility] Preliminary report : Twin A BPP 8/8 with FHT 141 Twin B BPP 8/8 with FHT of 164) Assessment and Plan A: IUP 30.1 weeks DI/DI Twin gestation 06/07/17 [facility] Polyhydramnios assessment for Twin A and Twin B 06/12/17 [facility] Reassuring MVP for Twin A and Twin B . Polyhydramnos resolved While under Procardia Occasional contractions reported BMZ for FLM completed MgSO4 for Neuroprotection and PTL completed 05/21/17 Twin A - SGA 05/21/17 Twin B - IUGR 06/14/17 [facility] Twin B SGA with EFW 15% 06/14/17 [facility] Twin A SGA with EFW 13% 05/21/17 [facility] Twin B with EIF Sequential Screen was initial performed by [facility] -NO result was provided History of previous C/S Twin presentation - VTX/ Transverse Anemia Under medical treatment for sinusitis P: Given the current findings, the likelihood for imminent premature delivery appears UNCLEAR . RECOMMENDATIONS: 1. I am in agreement with continued admission . 2. As always, a complete check for urinary and cervico-vaginal infection should be pursued during this admission. Accordingly we would obtain and follow -up the results of a wet prep for bacterial vaginosis and a urine culture to rule out subclinical UTI and asymptomatic bacteriuria. 3. As always, I would abandon all attempts of tocolysis in the presence of and SVE > 5cm, SROM, unexplained vaginal bleeding or a non- reassuring heart rate pattern. 4. Continue current regimen 5. Obtain PNR and all labs please include [facility] records 6. We will be happy to follow this patient with you. 7. Document GTT result 8. Iron replacement
[2017-06-17] MEDS: AUGMENTIN 875 MG PO SCH ×2 (10:16→21:34)
[2017-06-17] MEDS: PRENATAL VITAMIN PO SCH (10:17)
--- NOTE | 2017-06-17 13:28 | Progress Note ---
Assessment and Plan - Patient Problems (1) 29 weeks gestation of Onset Date: 06/13/17 Status: Acute Plan to address problem: A: IUP 30 1/7 weeks DI/DI Twin gestation - 05/21/17 Twin A - SGA 05/21/17 Twin B - IUGR 05/21/17 Twin B with EIF 06/07/17 u/s with [facility] Polyhydramnios assessment for Twin A and Twin B contractions while on Procardia 20mg PO Q4h BMZ for FLM - completed P: Continue present management as per [facility] Appreciate [facility] consultation Obtain urine C&S. (2) Twin gestation in third trimester Onset Date: 06/13/17 Status: Acute Qualifiers: Multiple gestation type: dichorionic and diamniotic Qualified Code(s): O30.043 - Twin , dichorionic/diamniotic, third trimester Subjective - Subjective Date of service: 06/17/17 Principal diagnosis: Twins gestation at 30 weeks with contractions. Interval history: Pt is a 32yo BF EDC 08/25/17; EGA 30 1/7 weeks with Twin gestation, presented to [facility] L&D complaining of RUC's q 3-4 mins. She received care at [facility] since 19 weeks and also followed by [facility] for Twin gestation (Di/Di) with IUGR for Twin B. She has a history of previous C Section for previous twins. She had been on Magnesium sulfate for tocolysis and Procardia, and received Steroids for FLM, and still fabrice irregularly. She was seen by [facility] today, and reported occ contractions with Procardia. BPP was performed by [facility] on 06/15/17 - showed 11/13 x 2 Patient reports: movement normal, no new complaints, no loss of fluid, no vaginal bleeding, no contractions Objective - Vital Signs Vital Signs: Vital Signs - 12hr 06/17/17 06/17/17 06/17/17 02:34 02:39 02:44 Temperature Pulse Rate 88 95 H 90 Respiratory Rate Blood Pressure O2 Sat by Pulse 98 97 97 Oximetry 06/17/17 06/17/17 06/17/17 02:49 02:54 02:59 Temperature Pulse Rate 94 H 97 H 98 H Respiratory Rate Blood Pressure O2 Sat by Pulse 96 96 95 Oximetry 06/17/17 06/17/17 06/17/17 03:00 03:03 03:04 Temperature 97.7 F Pulse Rate 95 H 99 H Respiratory 18 Rate Blood Pressure 96/54 O2 Sat by Pulse 97 Oximetry 06/17/17 06/17/17 06/17/17 03:09 03:14 03:19 Temperature Pulse Rate 97 H 98 H 100 H Respiratory Rate Blood Pressure O2 Sat by Pulse 97 96 98 Oximetry 06/17/17 06/17/17 06/17/17 03:24 03:29 03:34 Temperature Pulse Rate 98 H 89 93 H Respiratory Rate Blood Pressure O2 Sat by Pulse 96 96 97 Oximetry 06/17/17 06/17/17 06/17/17 03:39 03:44 03:47 Temperature Pulse Rate 96 H 92 H 88 Respiratory Rate Blood Pressure O2 Sat by Pulse 96 96 94 Oximetry 06/17/17 06/17/17 06/17/17 03:49 03:54 03:59 Temperature Pulse Rate 89 93 H 92 H Respiratory Rate Blood Pressure O2 Sat by Pulse 96 97 95 Oximetry 06/17/17 06/17/17 06/17/17 04:04 04:09 04:14 Temperature Pulse Rate 96 H 98 H 101 H Respiratory Rate Blood Pressure O2 Sat by Pulse 95 96 96 Oximetry 06/17/17 06/17/17 06/17/17 04:19 04:24 04:29 Temperature Pulse Rate 99 H 98 H 99 H Respiratory Rate Blood Pressure O2 Sat by Pulse 97 96 96 Oximetry 06/17/17 06/17/17 06/17/17 04:33 04:34 04:39 Temperature Pulse Rate 94 H 104 H 99 H Respiratory Rate Blood Pressure O2 Sat by Pulse 57 L 98 97 Oximetry 06/17/17 06/17/17 06/17/17 04:44 04:53 06:29 Temperature Pulse Rate 98 H 55 L 94 H Respiratory Rate Blood Pressure O2 Sat by Pulse 97 79 L 87 Oximetry 06/17/17 06/17/17 06/17/17 06:30 06:36 06:37 Temperature Pulse Rate 89 25 L 40 L Respiratory Rate Blood Pressure O2 Sat by Pulse 97 79 L 80 L Oximetry 06/17/17 06/17/17 06/17/17 06:42 06:47 06:52 Temperature Pulse Rate 104 H 97 H 102 H Respiratory Rate Blood Pressure O2 Sat by Pulse 100 97 97 Oximetry 0306/17/17 06/17/17 06:57 07:02 07:07 Temperature Pulse Rate 103 H 104 H 104 H Respiratory Rate Blood Pressure O2 Sat by Pulse 97 96 97 Oximetry 06/17/17 06/17/17 06/17/17 07:12 07:17 07:22 Temperature Pulse Rate 107 H 100 H 100 H Respiratory Rate Blood Pressure O2 Sat by Pulse 96 96 96 Oximetry 06/17/17 06/17/17 06/17/17 07:27 07:32 07:37 Temperature Pulse Rate 92 H 93 H 89 Respiratory Rate Blood Pressure O2 Sat by Pulse 96 97 96 Oximetry 06/17/17 06/17/17 06/17/17 07:42 07:47 07:52 Temperature Pulse Rate 92 H 82 91 H Respiratory Rate Blood Pressure O2 Sat by Pulse 96 96 98 Oximetry 06/17/17 06/17/17 06/17/17 07:57 08:02 08:05 Temperature Pulse Rate 98 H 93 H 59 L Respiratory Rate Blood Pressure O2 Sat by Pulse 95 96 70 L Oximetry 06/17/17 06/17/17 06/17/17 08:07 08:12 08:17 Temperature Pulse Rate 94 H 100 H 101 H Respiratory Rate Blood Pressure O2 Sat by Pulse 97 96 97 Oximetry 06/17/17 06/17/17 06/17/17 08:22 08:26 08:27 Temperature Pulse Rate 103 H 102 H 99 H Respiratory Rate Blood Pressure O2 Sat by Pulse 96 94 93 Oximetry 06/17/17 06/17/17 06/17/17 08:32 08:37 08:38 Temperature Pulse Rate 100 H 93 H 89 Respiratory Rate Blood Pressure O2 Sat by Pulse 94 95 94 Oximetry 06/17/17 06/17/17 06/17/17 08:42 08:47 08:51 Temperature Pulse Rate 98 H 96 H 98 H Respiratory Rate Blood Pressure O2 Sat by Pulse 94 94 94 Oximetry 06/17/17 06/17/17 06/17/17 08:52 08:57 09:02 Temperature Pulse Rate 94 H 100 H 96 H Respiratory Rate Blood Pressure O2 Sat by Pulse 94 96 96 Oximetry 06/17/17 06/17/17 09:07 09:33 Temperature Pulse Rate 101 H 113 H Respiratory Rate Blood Pressure 108/58 O2 Sat by Pulse 96 98 Oximetry - Exam Breasts: deferred Abdomen: Present: normal appearance, soft FHR: category 1 Uterine Contraction Monitor Mode: External Uterine Contraction Pattern: Absent - Labs Labs: Abnormal Labs 06/13/17 06/13/17 06/14/17 10:30 18:24 01:59 RBC Hgb Hct Monocytes % (Manual) Monocytes # (Manual) Magnesium 4.50 H 5.60 H 5.90 H 06/14/17 06/16/17 05:49 14:12 RBC 3.27 L Hgb 9.8 L Hct 29.3 L Monocytes % (Manual) 10.0 H Monocytes # (Manual) 1.0 H Magnesium 5.70 H Laboratory Results - last 24 hr 06/16/17 14:12 WBC 10.0 RBC 3.27 L Hgb 9.8 L Hct 29.3 L MCV 90 MCH 30 MCHC 34 RDW 14.3 Plt Count 142 Lymph # Poultry Picking 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 Tender Add Manual Diff Complete Total Counted 100 Seg Neuts % (Manual) 66.0 Band Neutrophils % 3.0 Lymphocytes % (Manual) 21.0 Reactive Lymphs % (Man) 0 Monocytes % (Manual) 10.0 H Eosinophils % (Manual) 0 Basophils % (Manual) 0 Metamyelocytes % 0 Myelocytes % 0 Promyelocytes % 0 Blast Cells % 0 Nucleated RBC % Not Reportable Seg Neutrophils # Man 6.6 Band Neutrophils # 0.3 Lymphocytes # (Manual) 2.1 Abs React Lymphs (Man) 0.0 Monocytes # (Manual) 1.0 H Eosinophils # (Manual) 0.0 Basophils # (Manual) 0.0 Metamyelocytes # 0.0 Myelocytes # 0.0 Promyelocytes # 0.0 Blast Cells # 0.0 WBC Morphology Not Reportable Hypersegmented Neuts Not Reportable Hyposegmented Neuts Not Reportable Hypogranular Neuts Not Reportable Smudge Cells Not Reportable Toxic Granulation Not Reportable Toxic Vacuolation Not Reportable Dohle Bodies Not Reportable Pelger-Huet Anomaly Not Reportable Cornelius Rods Not Reportable Platelet Estimate Appears normal Clumped Platelets Not Reportable Plt Clumps, EDTA Not Reportable Large Platelets Few Giant Platelets Not Reportable Platelet Satelliting Not Reportable Plt Morphology Comment Not Reportable RBC Morphology Normal Dimorphic RBCs Not Reportable Polychromasia Not Reportable Hypochromasia Not Reportable Poikilocytosis Not Reportable Anisocytosis Not Reportable Microcytosis Not Reportable Macrocytosis Not Reportable Spherocytes Not Reportable Pappenheimer Bodies Not Reportable Sickle Cells Not Reportable Target Cells Not Reportable Tear Drop Cells Not Reportable Ovalocytes Not Reportable Helmet Cells Not Reportable Griggs-Briarwood Bodies Not Reportable Hemet Rings Not Reportable [place] Cells Not Reportable Bite Cells Not Reportable Crenated Cell Not Reportable Elliptocytes Not Reportable Acanthocytes (Spur) Not Reportable Rouleaux Not Reportable Hemoglobin C Crystals Not Reportable Schistocytes Not Reportable Malaria parasites Not Reportable Sander Bodies Not Reportable Hem Pathologist Commnt No
[2017-06-17] MEDS ORDERED: BRETHINE ONE (17:52)
[2017-06-17] MEDS ORDERED: BRETHINE IVP ONE (18:22)
[2017-06-17] MEDS: FEOSOL PO SCH (21:34)
[2017-06-17] MEDS: INDOCIN PO SCH (23:16)
[2017-06-17] MEDS: TYLENOL PO PRN (23:40)
[2017-06-18 00:09] LABS: Bacteria,Urine 3+ /HPF (Negative); Bilirubin,Urine NEG (Negative); Blood,Urine NEG (Negative); Calcium Oxalate Crystals,Urine 1+; Color,Urine Yellow (Yellow); Protein,Urine <15 mg/dL mg/dL (Negative); RBC,Urine < 1.0 /HPF (0.0-6.0); Urobilinogen,Urine < 2.0 mg/dL (<2.0)
[2017-06-18] MEDS: NORMOSOL-R PH 7.4 1,000 ML IV SCH (03:03)
[2017-06-18] MEDS: PROCARDIA*For Tocolysis only PO SCH ×3 (04:00→10:28)
[2017-06-18] MEDS: INDOCIN PO SCH ×4 (05:26→11:10)
[2017-06-18 07:56] VITALS: BP 98/59
--- NOTE | 2017-06-18 08:51 | Consultation ---
History of Present Illness Consult date: 06/18/17 Requesting physician: AICHA CERVANTES History of present illness: Ms. England is 32 y.o G 3P2 29.5 weeks with ALISON of 08/25/17 . Followed by [facility] for DI/DI twin gestations with Polyhydramnios and Twin B IUGR . On 06/12/17 presented to [facility] L+D with ctx . Reported ctx started 06/12/17 @ 2100. Patient denied VB, ABD pain, and SOB. Patient reported AFM x 2 . 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 History: abnormal PAP smear Family/Genetic History: hypertension - Obstetrical History : 3 Medications and Allergies Allergies Allergy/AdvReac Type Severity Reaction Status Date / Time Latex, Natural Rubber Allergy Rash Verified 06/11/17 13:51 Home Medications Medication Instructions Recorded Confirmed Last Taken Type No Known Home Medications [No 06/13/17 06/13/17 Unknown History Reported Home Medications] Active Meds: Active Medications Acetaminophen (Tylenol) 650 mg PO Q6H PRN PRN Reason: Pain, Mild (1-3) Last Admin: 06/16/17 18:37 Dose: 650 mg Acetaminophen (Tylenol) 650 mg PO Q4H PRN PRN Reason: Pain, Mild (1-3) Last Admin: 06/17/17 23:40 Dose: 650 mg Amoxicillin/Clavulanate Potassium (Augmentin 875 Mg) 1 each PO Q12HR AVEL Last Admin: 06/17/17 21:34 Dose: 1 each Ferrous Sulfate (Feosol) 325 mg PO BID AVEL Last Admin: 06/17/17 21:34 Dose: 325 mg Lactated Ringer's (Lactated Ringers) 1,000 mls @ 125 mls/hr IV DIRECT AVEL Last Admin: 06/13/17 04:45 Dose: 125 mls/hr Magnesium Sulfate (Magnesium Sulfate 40gm/1000ml) 40 gm in 1,000 mls @ 37.5 mls /hr IV DIRECT AVEL Last Infusion: 06/14/17 03:55 Dose: 1 gm/hr, 25 mls/hr Magnesium Sulfate (Magnesium Sulfate 40gm/1000ml) 40 gm in 1,000 mls @ 50 mls/ hr IV DIRECT AVEL Last Admin: 06/14/17 02:20 Dose: 2 gm/hr, 50 mls/hr Parenteral Electrolytes (Normosol-R Ph 7.4) 1,000 mls @ 125 mls/hr IV DIRECT AVEL Last Admin: 06/18/17 03:03 Dose: 125 mls/hr Indomethacin (Indocin) 50 mg PO Q6HR [facility] Stop: 06/20/17 18:01 Last Admin: 06/18/17 05:29 Dose: 50 mg Multivitamins/Iron/Calcium ( Vitamin) 1 each PO QDAY [facility] Last Admin: 06/17/17 10:17 Dose: 1 each Nifedipine (Procardia*For Tocolysis Only*) 20 mg PO Q4HR [facility] Last Admin: 06/18/17 04:00 Dose: Not Given Zolpidem Tartrate (Ambien) 10 mg PO QHS PRN PRN Reason: Insomnia Last Admin: 06/14/17 22:43 Dose: 10 mg - Vital Signs Vital signs: Vital Signs Pulse BP 108 H 117/75 06/13/17 00:09 06/13/17 00:09 Temp Pulse Resp BP Pulse Ox 95.5 F L 84 20 98/59 100 06/18/17 07:54 06/18/17 08:37 06/18/17 07:54 06/18/17 07:59 06/18/17 08:37 Results Result Diagrams: 06/16/17 14:12 Abnormal lab results 06/17/17 Range/Units 23:45 Urine pH 8.0 H (5.0-7.0) All other labs normal. Assessment and Plan DI/DI Twin gestation at 30 2/7 weeks 06/07/17 [facility] Polyhydramnios assessment for Twin A and Twin B 06/12/17 [facility] Reassuring MVP for Twin A and Twin B . Polyhydramnos resolved While under Procardia Occasional contractions reported BMZ for FLM completed MgSO4 for Neuroprotection and PTL completed 05/21/17 Twin A - SGA 05/21/17 Twin B - IUGR 06/14/17 [facility] Twin B SGA with EFW 15% 06/14/17 [facility] Twin A SGA with EFW 13% 05/21/17 [facility] Twin B with EIF Sequential Screen was initial performed by [employer] -NO result was provided History of previous C/S Twin presentation - VTX/ Transverse Anemia Under medical treatment for sinusitis Recommendations: 1. BPP to be repeated today 2. If remains stable (cervix was rechecked today and closed) would allow discharge 3. Would continue Indocin 50 mg PO Q 6 hours x 3 days 4. Follow up with [facility] weekly 5. Call for S/S of PTL or DFM's 6. Iron
--- NOTE | 2017-06-18 09:21 | Progress Note ---
Assessment and Plan - Patient Problems (1) Twin gestation in third trimester Status: Acute Qualifiers: Multiple gestation type: dichorionic and diamniotic Qualified Code(s): O30.043 - Twin , dichorionic/diamniotic, third trimester (2) contractions Status: Acute Plan to address problem: [facility] consult was done. Celestone series completed. Magnesium discontinued. Patient did have occasional contractions afterwards but she responded well to procardia. Hospital ran out of procardia and she was given endocin. Dr. White from [facility] saw her this AM. She is having a BPP this AM. She will be discharged home on endocin x [address] White. Labor precautions were given. She was told to keep her appt with [facility] on 06/21. (3) Previous section Status: Acute Plan to address problem: Patient did want , but she was told that baby B is in a transverse lie. If delivery becomes necessary, she will need a repeat C/section due to gestation and lie. She says that she would agree with whatever is recommended. (4) Sinusitis, acute Status: Acute Plan to address problem: Continue augmentin BID. (5) 30 weeks gestation of Status: Acute Subjective - Subjective Date of service: 06/18/17 Principal diagnosis: Twins gestation at 30 weeks with contractions. Interval history: Patient was admitted early on 06/13 for contractions. On admission, she was fabrice every 3-4 mins and tracing were reassuring. Sonogram showed baby A to be VTX and SGA and B to be transverse and IUGR. She was given celestone for FLM, 2 doses completed, magnesium sulfate which was discontinued 2 days ago, and IV antibiotics. Cervical cultures were negative. [facility] saw the patient and recommended continued and toco monitoring for 24 hours after magnesium. The following day, the patient complained of having irregular contractions but they have been mild and have not increased in intensity. She denied any fluid leakage or bleeding. Cervix: closed/80%/-2, unchanged from admission. Later on on HD#3, she developed a low grade fever. At that time, she also complained of pain in her ears and face and she has been dealing with a toothache for several days now. Urinalysis and cultures were negative. She was started on augmentin BID. The hospital ran out of procardia and she was given endocin last night. Right now, she denies any contractions, fluid leakage or bleeding. She reports good movement x 2. She is having a BPP this AM. If that is normal, she will be discharged home. She will F/U with [facility] on 06/21 and [facility] on 06/20. Patient reports: movement normal, no new complaints, no loss of fluid, no vaginal bleeding, no contractions Objective - Vital Signs Vital Signs: Vital Signs - 12hr 06/17/17 06/17/17 06/18/17 23:11 23:21 02:48 Temperature 99.7 F H 98.2 F Pulse Rate 114 H 117 H Respiratory 20 Rate Blood Pressure 105/55 Blood Pressure 105/55 [Right] O2 Sat by Pulse 96 Oximetry 06/18/17 06/18/17 06/18/17 03:35 07:54 07:57 Temperature 98.1 F 95.5 F L Pulse Rate 82 90 Respiratory 18 20 Rate Blood Pressure 99/54 Blood Pressure 99/54 98/59 [Right] O2 Sat by Pulse 96 97 18 L Oximetry 06/18/17 06/18/17 06/18/17 07:58 07:59 08:21 Temperature Pulse Rate 92 H 86 91 H Respiratory Rate Blood Pressure 98/59 Blood Pressure [Right] O2 Sat by Pulse 98 100 Oximetry 06/18/17 06/18/17 06/18/17 08:22 08:26 08:31 Temperature Pulse Rate 78 81 75 Respiratory Rate Blood Pressure Blood Pressure [Right] O2 Sat by Pulse 58 L 100 100 Oximetry 06/18/17 08:37 Temperature Pulse Rate 84 Respiratory Rate Blood Pressure Blood Pressure [Right] O2 Sat by Pulse 100 Oximetry - Exam Cardiovascular: Normal S1, Normal S2 Lungs: Clear to auscultation FHR: category 1 Uterine Contraction Monitor Mode: External Cervical Dilatation: 0 Cervical Effacement Percentage: 80 station: -2 Uterine Contraction Pattern: Absent Deep Tendon Reflex Grade: Normal +2 - Labs Labs: Abnormal Labs 06/13/17 06/13/17 06/14/17 10:30 18:24 01:59 RBC Hgb Hct Monocytes % (Manual) Monocytes # (Manual) Magnesium 4.50 H 5.60 H 5.90 H Urine pH 06/14/17 06/16/17 06/17/17 05:49 14:12 23:45 RBC 3.27 L Hgb 9.8 L Hct 29.3 L Monocytes % (Manual) 10.0 H Monocytes # (Manual) 1.0 H Magnesium 5.70 H Urine pH 8.0 H Laboratory Results - last 24 hr 06/17/17 23:45 Urine Color Yellow Urine Turbidity Clear Urine pH 8.0 H Ur Specific [place] 1.006 Urine Protein <15 mg/dl Urine Glucose (UA) Neg Urine Ketones Neg Urine Blood Neg Urine Nitrite Neg Urine Bilirubin Neg Urine Urobilinogen < 2.0 Ur Leukocyte Esterase Neg Urine WBC (Auto) 1.0 Urine RBC (Auto) < 1.0 U Epithel Cells (Auto) 1.0 Urine Bacteria (Auto) 3+ Calcium Oxalate Crystal 1+
[2017-06-18] MEDS: AUGMENTIN 875 MG PO SCH (10:25)
[2017-06-18] MEDS: PRENATAL VITAMIN PO SCH (10:26)
[2017-06-18] MEDS: FEOSOL PO SCH (10:27)
--- NOTE | 2017-06-18 10:58 | Ultrasound Report ---
ULTRASOUND BIOPHYSICAL PROFILE: History: well being Technique: Transabdominal ultrasound with Doppler interrogation. Baby A 2 - breathing movements 2 - movements 2 - posture and tone 2 - Qualitative amniotic fluid volume 8 - TOTAL SCORE OF POSSIBLE 8 Heart Rate (bpm) 144 Baby B 2 - breathing movements 2 - movements 2 - posture and tone 2 - Qualitative amniotic fluid volume 8 - TOTAL SCORE OF POSSIBLE 8 Heart Rate (bpm) 142
--- NOTE | 2017-06-18 11:04 | Ultrasound Report ---
OB ULTRASOUND FOLLOWUP OB ULTRASOUND FOLLOWUP ADD GESTATION HISTORY twin gestation, well being. TECHNIQUE: Transabdominal ultrasound with Doppler interrogation. Gestation: Baby A Position: Cephalic Amniotic Fluid: Within normal limits BILL = 8.1 cm larger vertical pocket Heart Rate: 155 BPM BPD: 7.8 cm = 31 w 3 d HC: 28.3 cm = 31 w 0 d AC: 28.2 cm = 32 w 1 d FL: 5.7 cm = 29 w 6 d HC/AC Ratio: 1.0 Cephalic Index: 84.9 Estimated Weight: 1736 grams Clinical age = 30 w 2 d EDC: 08/25/17 US Gest. Age = 31 w 1 d EDC: 08/19/17 Gestation: Baby B Position: Transverse with head to maternal left Amniotic Fluid: Within normal limits BILL = 6.0 cm large vertical pocket Heart Rate: 138 BPM BPD: 7.7 cm = 31 w 0 d HC: 27.4 cm = 29 w 6 d AC: 25.2 cm = 29 w 2 d FL: 5.7 cm = 29 w 5 d HC/AC Ratio: 1.09 Cephalic Index: 87.5 Estimated Weight: 1428 grams Clinical age = 30 w 2 d EDC: 08/31/17 US Gest. Age = 30 w 0 d EDC: 08/27/17 IMPRESSION: Viable twin gestation as described.
--- NOTE | 2017-06-18 11:06 | Ultrasound Report ---
ULTRASOUND OB VELOCIMETRY UMBILICAL ARTERY ULTRASOUND OB VELOCIMETRY UMBILICAL ARTERY HISTORY: Twin gestation. TECHNIQUE: Transabdominal ultrasound. Spectral Doppler interrogation was performed on 3 segments of the umbilical cord. FINDINGS: BABY A heart rate measures 149 beats per minute. The spectral waveforms are normal and persistent. No evidence for loss or reversal of end-diastolic flow. The resistive index average measures 2.76. The systolic/diastolic ratio average measures 0.63. BABY B heart rate measures 137 beats per minute. The spectral waveforms are normal and persistent. No evidence for loss or reversal of end-diastolic flow. The resistive index average measures 3.17. The systolic/diastolic ratio average measures 0.68. IMPRESSION: Umbilical cord Doppler within normal limits.
== END 2017-06-18 12:00 | disposition home or self-care (01) ==
LOC: TRG 23:49 → LD 23:57 → TRG 06-18 12:00
PROVIDERS: ATTEND Obstetrics & Gynecology
DX: O30.043 Twin pregnancy, dichorionic/diamniotic, third trimester (principal); O32.2XX2 Maternal care for transverse and oblique lie, fetus 2; O62.9 Abnormality of forces of labor, unspecified; Z3A.29 29 weeks gestation of pregnancy
CPT/HCPCS: 36415; 76805; 76810; 76819; 80307; 81001; 83735; 85007; 85025; 87210; J0595; J0690; J0702; J3105; J3475; J7030; J7120; 76816; 76820; 87086

== ENCOUNTER 2017-07-21 02:22 | Inpatient (IN) | payer MEDICAID ==
--- NOTE | 2017-07-21 04:25 | Ultrasound Report ---
FINAL REPORT EXAM: US OB LIMITED HISTORY: labor TECHNIQUE: A limited OB sonogram was obtained for evaluation of abdominal fluid volume. FINDINGS: There is a twin . For twin a, it is in cephalic presentation. The largest vertical fluid pocket is 3.8 cm which is within normal range. The placenta is anterior in position and is grade 1. The heart rate is 164 BPM. For twin B, it is in transverse position. The largest vertical fluid pocket is 3 cm which is within normal range. The placenta is anterior position and is grade 1. The heart is 148 BPM. IMPRESSION: Twin as described. No evidence of oligohydramnios.
[2017-07-21] MEDS ORDERED: REGLAN IV ONE (05:51)
[2017-07-21] MEDS ORDERED: PEPCID IV ONE ×2 (05:51→19:31)
[2017-07-21] MEDS ORDERED: BICITRA PO ONE (05:51)
[2017-07-21] MEDS ORDERED: ANCEF/STERILE WATER 2 GM/20 ML 2 GM/20 ML SYRINGE IV ONE (06:00)
[2017-07-21] MEDS ORDERED: PITOCin/NS 20 UNIT/1000ML DRIP 20 UNITS/1,000 ML BAG IV SCH ×2 (06:00→10:00)
--- NOTE | 2017-07-21 06:31 | History and Physical Report ---
History of Present Illness Date of examination: 07/21/17 Date of admission: 07/21/17 06:01 Chief complaint: Ruptured Membranes in twins at ~ 1:00 pm yesterday (07/20/17) History of present illness: The patient is 32-year-old A2 (prior twins) at at 35 weeks (ALISON 08/25/17) with Di Di twins. Patient is a [employer] patient who I saw in the office for Pre-OP visit last week. care complicated by twin gestation ; baby B with IUGR. She is status post rupture at about 1:40 PM yesterday, rupture confirmed today in triage. Patient is s/p admission in 06/2107 for concerns about labor, she was started on magnesium and Celestone course completed. 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 denies: Lives alone, smoking, IV drug use - Obstetrical History Expected Date of Delivery: 08/25/17 Actual Gestation: 35 Week(s) 0 Day(s) : 3 Para: 2 Number of Living Children: 2 Medications and Allergies Allergies Allergy/AdvReac Type Severity Reaction Status Date / Time Latex, Natural Rubber Allergy Rash Verified 06/11/17 13:51 Home Medications Medication Instructions Recorded Confirmed Last Taken Type No Known Home Medications [No 06/13/17 06/13/17 Unknown History Reported Home Medications] Active Meds: Active Medications Lactated Ringer's (Lactated Ringers) 1,000 mls @ 2,250 mls/hr IV PREOP AVEL Stop: 07/22/17 06:27 Oxytocin/Sodium Chloride (Pitocin/Ns 20 Unit/1000ml Drip) 20 units in 1,000 mls @ 0 mls/hr IV TITR AVEL Review of Systems Constitutional: no fever, no chills, no weakness Eyes: no diplopia, no photophobia, no blind spots Cardiovascular: no chest pain, no orthopnea, no syncope, no lightheadedness, no shortness of breath, no dyspnea on exertion, no high blood pressure, no leg edema, no decreased exercise tolerance Respiratory: no cough, no cough with sputum, no shortness of breath, no dyspnea on exertion Gastrointestinal: no abdominal pain, no nausea, no vomiting, no heartburn, no dyspepsia/bloating - Vital Signs Vital signs: Vital Signs Temp Pulse Resp BP 98.6 F 85 18 105/64 07/21/17 02:50 07/21/17 02:50 07/21/17 02:50 07/21/17 02:50 Temp Pulse Resp BP Pulse Ox 98.6 F 85 18 105/64 07/21/17 02:50 07/21/17 02:50 07/21/17 02:50 07/21/17 02:50 - Physical Exam Cardiovascular: Regular rate, Normal S1, Normal S2 Lungs: Positive: Clear to auscultation, Normal air movement Abdomen: Positive: normal appearance, soft. Negative: distention, tenderness, guarding, rigidity Genitourinary (Female): Positive: normal external genitalia Uterus: Positive: enlarged (EFW ~ 3500). Negative: tender Adnexa: both: normal Extremities: Positive: normal - Obstetrical FHR: category 1 (x 2) Results All other labs normal. Assessment and Plan A: 32 y/o (prior twins) with SROM -Cat 1 tracing P: -Admit -Routine labs -She was previoulsy consented -Proceed to the OR once available - Patient Problems (1) 35 weeks gestation of Current Visit: Yes Status: Acute (2) Previous section Current Visit: No Status: Acute (3) Twin gestation in third trimester Onset Date: 06/13/17 Current Visit: No Status: Acute Qualifiers: Multiple gestation type: dichorionic and diamniotic Qualified Code(s): O30.043 - Twin , dichorionic/diamniotic, third trimester (4) Spontaneous rupture of amniotic membranes Current Visit: Yes Status: Acute
[2017-07-21 06:43] LABS: Basophils # (Auto) 0.1 K/mm3 (0.0-0.1); Basophils % (Auto) 0.6 % (0.0-1.8); Eosinophils # (Auto) 0.1 K/mm3 (0.0-0.4); Eosinophils % (Auto) 1.1 % (0.0-4.3); Hemoglobin 9.9 gm/dl (10.1-14.3); Lymphocytes # (Auto) 2.9 K/mm3 (1.2-5.4); Lymphocytes % (Auto) 24.9 % (13.4-35.0); Mean Corpuscular HGB Conc 32 % (30-34); Mean Corpuscular Hemoglobin 28 pg (28-32); Mean Corpuscular Volume 87 fl (79-97); Monocytes # (Auto) 0.8 K/mm3 (0.0-0.8); Monocytes % (Auto) 6.8 % (0.0-7.3); Platelet Count 155 K/mm3 (140-440); Red Blood Count 3.58 M/mm3 (3.65-5.03); Red Cell Distribution Width 15.3 % (13.2-15.2)
[2017-07-21] MEDS ORDERED: EMLA TP PRN (06:47)
[2017-07-21] MEDS ORDERED: ASTRAMORPH PF 10MG/10ML ONE (06:57)
[2017-07-21] MEDS ORDERED: ANCEF/STERILE WATER 2 GM/20 ML 2 GM/20 ML SYRINGE IV NR (07:00)
[2017-07-21] MEDS: LACTATED RINGERS 1,000 ML IV SCH ×2 (07:02→07:08)
[2017-07-21] MEDS ORDERED: ZOFRAN ONE (08:05)
[2017-07-21] MEDS ORDERED: NEO SYNEPHRINE/NS Syringe(OR USE) IV ONE (08:39)
[2017-07-21] MEDS ORDERED: WATER FOR IRRIG STERILE IR ONE (08:42)
[2017-07-21] MEDS ORDERED: NACL 0.9% IR ONE (08:42)
[2017-07-21] MEDS ORDERED: TORADOL IV PRN (09:03)
[2017-07-21] MEDS ORDERED: MYLICON PO PRN (09:03)
[2017-07-21] MEDS ORDERED: ANUCORT-HC PR PRN (09:03)
[2017-07-21] MEDS ORDERED: LANSINOH TP PRN (09:03)
[2017-07-21] MEDS ORDERED: TUCKS PAD TP PRN (09:03)
[2017-07-21] MEDS ORDERED: NARCAN 0.4 MG/1 ML IV PRN (09:03)
[2017-07-21] MEDS ORDERED: SENOKOT PO PRN (09:03)
[2017-07-21] MEDS ORDERED: ZOFRAN IV PRN (09:03)
[2017-07-21] MEDS ORDERED: PERCOCET 5/325 PO PRN (09:03)
[2017-07-21] MEDS ORDERED: MILK OF MAGNESIA PO PRN (09:03)
--- NOTE | 2017-07-21 09:03 | Operative Report ---
Operative Report Operative Report: DATE: 07/21/17 PREOPERATIVE DIAGNOSIS: 32-year-old at 35 weeks, [place], ruptured membranes, prior desires repeat POSTOP DIAGNOSIS: As above plus fibroid uterus NAME OF PROCEDURE: Repeat low transverse section Myomectomy SURGEON: MAYRA VALDIVIA MD MANAGER WEB: Dennise ANESTHESIA: Spinal EBL: 1100 mL PATHOLOGY SPECIMEN: Fibroid URINE OUTPUT: 300 mL FINDINGS: 4 x 5 cm fibroid over the incision spot at lower segment, Baby A is a Male in cephalic presentation with Nuchal cord x 2 tight, time of 8 :08 AM infant weight 5 pounds or 2273 g Apgars 6 and 8. Baby B is a Male infant in footling breech presentation with Nuchal cord x 1, time of 8:09 AM weight 4 lbs. 5 oz. or 1947 g, Apgars 8 and 9. Uterus with Fibroid otherwise normal tubes and ovaries bilaterally DESCRIPTION OF PROCEDURE: She was taken to the operating room where she was prepped and draped in a sterile fashion, she was placed in the dorsal supine position. Pfannenstiel incision was performed through her prior incisional scar which was carried through to underlying rectus fascia which was scored in the midline. The fascial incision was extended laterally with use of Sotomayor scissors, the anterior leaf was then grasped with Kochers forceps elevated dissected sharply and bluntly off the underlying rectus in a similar fashion inferior leaf was grasped elevated dissected sharply and bluntly off the underlying rectus. The rectus was in the midline, good visualization of bladder was noted. A bladder blade was placed in the patient's pelvic cavity ; bladder flap could not be created. A fibroid was noted in the lower segment as stated above. A hysterotomy incision was then performed in the lower segment just below the fibroid; clear amniotic fluid noted in sac A, hysterotomy incision was extended laterally with the use of Thi scissors. Placenta was anterior, in cephalic presentation was delivered in the usual manner through the placenta; cord was clamped and cut infant was handed over to waiting nursery staff. Baby B amniotic sac was ruptured with clear fluid, he was in breech presentation and was delivered in the usual manner. Cord was clamped and handed over to waiting NICU staff. The placenta was then delivered manually intact, the uterus was exteriorized cleared of all clots and debris. Hysterotomy incision was then closed in a running locked fashion with 0 Vicryl on a CTX in 3 layers. Interrupted [id number] stitches were used to obtain hemostasis. Uterus was then returned to the patient's pelvic cavity; peritoneal edges were grasped with hemostats and Katelin's elevated copious irrigation was used to clear the gutters of all clots and debris. Tercel hemostatic agent was then applied to the hysterotomy incision as a means to prevent future bleeding. The peritoneal layer was then closed in a running fashion with 3-0 Vicryl and the rectus was reapproximated with a single figure- of-eight stitch. The fascia was closed in a running fashion with 0 Vicryl and tied in the opposite side. The subcutaneous layer was irrigated and then reapproximated with interrupted [id number] stitches. The skin was closed in a subcuticular manner with 4-0 Vicryl. She tolerated the procedure well lap and instrument counts were correct 2 she did receive 2 g of Ancef prior to incision she is transferred to PACU in stable condition thank you.
[2017-07-21] MEDS ORDERED: SODIUM CHLORIDE FLUSH SYRINGE 10 ML IV NR (10:00)
[2017-07-21] MEDS ORDERED: D5LR 1,000 ML IV SCH (10:00)
[2017-07-21] MEDS: PRENATAL VITAMIN PO SCH (10:30)
[2017-07-21] MEDS: FEOSOL PO SCH ×2 (10:30→14:01)
[2017-07-21 14:00] LABS: Hematocrit 27.2 % (30.3-42.9); Hemoglobin 8.7 gm/dl (10.1-14.3)
[2017-07-21] MEDS ORDERED: PHENERGAN PR PRN (18:10)
[2017-07-21] MEDS ORDERED: TRANSDERM-SCOP TD ONE (19:00)
[2017-07-22] MEDS: MOTRIN PO PRN ×3 (05:10→18:45)
[2017-07-22] MEDS: FEOSOL PO SCH (10:25)
[2017-07-22] MEDS: PRENATAL VITAMIN PO SCH (10:25)
[2017-07-22] MEDS ORDERED: INFED IM ONE (11:10)
--- NOTE | 2017-07-22 11:13 | Progress Note ---
Assessment and Plan A: POD #1 (Twin Delivery) Asymptomatic Anemia P: Follow Routine PostOp Orders FeSO4 325mg PO BID Infed 100mg IM X 1 Dose Subjective - Subjective Date of service: 07/22/17 Patient reports: appetite normal, voiding normally, pain well controlled, flatus , ambulating normally [place]: in NICU, bottle feeding Objective - Vital Signs Latest vital signs: Vital Signs Temp Pulse Resp BP 07/22/17 04:00 98.7 F 68 18 118/75 07/22/17 01:50 98.6 F 71 18 112/67 07/21/17 19:30 98.6 F 77 16 101/79 Intake and Output 07/21/17 07/22/17 07/22/17 22:59 06:59 14:59 Intake Total 300 Output Total 400 2000 Balance -100 -1999 Intake: Intake, Free Water 300 Output: Urine 400 2000 Indwelling Catheter 400 Void 2000 Other: Total, Output Amount 400 800 # Voids Void 1 - Exam Breasts: Present: normal Cardiovascular: Present: Regular rate Lungs: Present: Clear to auscultation, Normal air movement Abdomen: Present: normal appearance, soft, normal bowel sounds Uterus: Present: normal, firm, fundal height below umbilicus Extremities: Present: normal Incision: Present: normal, dry, dressed - Labs Labs: Abnormal lab results 07/21/17 Range/Units 13:40 Hgb 8.7 L (10.1-14.3) gm/dl Hct 27.2 L (30.3-42.9) %
[2017-07-23] MEDS: MOTRIN PO PRN ×2 (00:34→10:31)
[2017-07-23] MEDS: FEOSOL PO SCH ×3 (00:37→22:09)
[2017-07-23] MEDS: PRENATAL VITAMIN PO SCH (10:35)
--- NOTE | 2017-07-23 18:22 | Progress Note ---
Assessment and Plan - Patient Problems (1) S/P repeat low transverse Current Visit: Yes Status: Acute Plan to address problem: POD 2 - stable Continue routine postop orders Discharge to home 07/24/17 F/U at [facility] [employer] in 1 week for incision check (2) Low back pain Current Visit: Yes Status: Acute Plan to address problem: Anesthesia consulted and requested bedside evaluation (3) Anemia in puerperium, baby delivered during current episode of care Current Visit: Yes Status: Acute Plan to address problem: Asymptomatic continue iron therapy Subjective - Subjective Date of service: 07/23/17 Principal diagnosis: s/p repeat LTCS Patient reports: appetite normal, voiding normally, pain well controlled, flatus , bowel movement, ambulating normally, other (c/o sharp pain at anesthesia site radiating upper her back when ) : doing well, in NICU Objective - Vital Signs Latest vital signs: Vital Signs Temp Pulse Resp BP BP Pulse Ox 07/23/17 17:05 98.2 F 104 H 18 96/56 99 07/23/17 07:50 98.7 F 107 H 18 98/55 99 07/23/17 01:34 18 07/23/17 00:34 20 07/23/17 00:31 103 H 98/74 100 07/23/17 00:20 98.4 F 91 H 20 98/74 100 07/22/17 19:45 18 07/22/17 18:32 97.7 F 96 H 20 105/71 100 Intake and Output 07/23/17 07/23/17 07/23/17 07:59 15:59 23:59 Intake Total 480 480 Output Total 550 Balance 480 -70 Intake: Oral 480 480 Output: Urine 550 Void 550 Other: Total, Intake Amount 240 480 Total, Output Amount 550 # Voids Void 1 - Exam Cardiovascular: Present: Regular rate, Normal S1, Normal S2, No murmurs Lungs: Present: Clear to auscultation, Normal air movement Abdomen: Present: normal appearance, soft Uterus: Present: normal, firm, fundal height below umbilicus Extremities: Present: normal Deep Tendon Reflex Grade: Normal +2 Incision: Present: normal, intact, other (small pink d/c noted on right incision site. No odor present)
--- NOTE | 2017-07-23 18:28 | Discharge Summary ---
Providers - Providers Date of Admission: 07/21/17 06:01 Date of discharge: 07/24/17 Attending physician: HEATHER ALAMO MD Primary care physician: HEATHER ALAMO MD Hospitalization Reason for admission: IUP - , labor, rupture of membranes Delivery: Procedure: repeat low transverse Episiotomy: none Laceration: none Incision: normal, intact Other procedures: none complications: none Discharge diagnosis: delivery [place] baby: twins (male/male) Hospital course: Uncomplicated Disposition: TO HOME OR SELFCARE - Discharge Diagnoses (1) S/P repeat low transverse Status: Acute (2) Low back pain Status: Acute Comment: anesthesia consult requested (3) Anemia in puerperium, baby delivered during current episode of care Status: Acute Comment: asymptomatic, continue iron therapy Plan - Discharge Medications Prescriptions: Ferrous Sulfate [Feosol 325 MG tab] 325 mg PO BID #60 tablet Ibuprofen [Motrin 600 MG tab] 600 mg PO Q8H PRN #30 tablet PRN Reason: Pain Multivitamin with Iron [Multivitamins with Iron] 1 each PO DAILY #30 tablet oxyCODONE /ACETAMINOPHEN [Percocet 5/325] 1 tab PO Q6HR PRN #30 tablet PRN Reason: Pain - Provider Discharge Summary Activity: routine, no sex for 6 weeks, no heavy lifting 4 weeks, no strenuous exercise Diet: routine Instructions: routine Additional instructions: [] Smoking cessation referral if applicable(refer to patient education folder for contact #) [] Refer to [facility] Booklet Call your doctor immediately for: * Fever > 100.5 * Heavy vaginal bleeding ( >1 pad per hour) * Severe persistent headache * Shortness of breath * Reddened, hot, painful area to leg or breast * Drainage or odor from incision. * Keep incision clean and dry at all times and follow doctor's instructions regarding bathing/showering - Follow up plan Follow up: HEATHER ALAMO MD [Primary Care Provider] - 7 Days (Call [facility] MEDIA MARKETING COORDINATOR to schedule an appointment in 1 week for incision check)
--- NOTE | 2017-07-23 20:11 | Progress Note ---
Subjective Date of service: 07/23/17 Principal diagnosis: s/p repeat LTCS Interval history: I was asked to see the patient 2/2 low back pain associated with when breast feeding. Upon first entering the room, the patient is sitting leaning forward and to the right presumably utilizing a pump. I backed up placing the opening of the vestibule between us and offered to return in 10 minutes of which she agreed. I exited and returned as indicated. There was no indication of pain or discomfort at that time. The patient indicated that when her child latched on, she had sudden spinal pain at the site of the spinal injection radiating up to the site of her previous spinal at time of previous of which also had radiation posteriorly down the legs (pointing at the right) all the way to the feet ending at the toes. Upon asking which ones, she indicated all. I restated all five, she said yes. She indicated that when it happened, she asked someone to come get the child. The pain is described as episodic but severe when it occurs. The patient remained focused on her issue that the spinal anesthesia caused it and she was having spinal pain. The patient denied any other neurological deficits. AAO, NAD, MAEW, extremities warm. CNII through XII grossly intact. Lower extremity sensation grossly intact TTP over the posterior process and immediately lateral bilaterally at about L4 and L2 as well as over the SI joints bilaterally (right > left) Positive GRACE bilaterally (right > left), Facet loading caused increased pain on the extension side > flexion side. SLR negative for radiculopathy with some low back discomfort. Skin of the back is of normal temperature Most likely diagnosis is Myofascial pain in the lumbar region with potential facet arthropathy and sacroiliitis. Each of these usually improve with time even if nothing is done. I recommend continuation of the ibuprofen on a scheduled basis for at least 3 days unless contraindicated. Narcotics like Percocet are only moderately effective for muscle pain. If used, strong consideration must be made to risk/ benefit. When at home, the patient should increase flexibility of the lumbar spine and gluteal region with the stretching exercises I demonstrated. Consider attending PT for additional training. Massage therapy should be helpful. After about one week, the patient should consider low impact core muscle training (abdominal strengthening training). A home exercise program should be continued long after the acute pain issue is resolved if she desires to prevent future episodes. I recommend lidocaine patches cut to size to cover the area of the most pain Consider a muscle relaxant like Zanaflex if it continues. While in the hospital, continue to monitor for any signs or symptoms of infection or neurological symptoms. Notify anesthesia as soon as detected. If this continues to be a problem, the patient can be referred to an interventional sole painter - The patient correctly indicates that prescribing pills (medical management pain physician) is not in her best interest. While explaining the diagnosis, the patient indicated that she would like a second opinion. I informed her that I would try to have the physician in charge of her case in the OR to stop by after she arrives tomorrow. I indicated that this might not be easily obtainable and would depend on the case load in the morning. The patient demonstrated an understanding of how the uterus contracts during breast feeding but a lack of understanding of how the spine works. I spent an extended period of time explaining how the presentation of pain did not resemble any involvement of the spine itself but rather the paraspinous musclulature. The spinal needle's penetration of a muscle during passage to get to the intrathecal space can cause inflammation and therefore the muscle is more likely to spasm. The patient indicated that with her meticulous diet, she does not have inflammation. She indicated that inflammation has pus (to which I indicated that that inflammation would be associated with infection but there is no calor at the site). The patient indicated that she was taking ibuprofen of which could mask a fever of which is correct but not likely to stop the increased temperature at the site. The patient indicated that she has family members with arthritis of which would not affect her because she has a better diet than they do. Unfortunately, a great diet does not resolve everything or overcome any genetic predisposition completely. The patient and I did not agree with this issue. I informed the patient of what my recommendations would be. I also informed the patient that all medications should remain under the control of her OB as long as she was at the hospital because of her breast feeding. Objective - Constitutional Vitals: Vital Signs - 12hr 07/23/17 07/23/17 07:50 17:05 Temperature 98.7 F 98.2 F Pulse Rate 107 H 104 H Respiratory 18 18 Rate Blood Pressure 98/55 96/56 O2 Sat by Pulse 99 99 Oximetry - Labs CBC & Chem 7: 07/21/17 13:40
[2017-07-24] MEDS ORDERED: TRIPLE ANTIBIOTIC TP ONE (02:18)
[2017-07-24] MEDS: TRIPLE ANTIBIOTIC TP SCH ×2 (02:48→02:54)
[2017-07-24] MEDS ORDERED: TRIPLE ANTIBIOTIC TP NR (03:00)
[2017-07-24] MEDS: FEOSOL PO SCH (10:42)
[2017-07-24] MEDS: PRENATAL VITAMIN PO SCH (10:43)
[2017-07-24 16:43] VITALS: BP 114/66
== END 2017-07-24 16:30 | disposition home or self-care (01) | DRG 765 ==
LOC: TRG 02:22 → APU 06:01 → OB 10:52
PROVIDERS: ADMIT Obstetrics & Gynecology; ATTEND Obstetrics & Gynecology
PROC: 10D00Z1 Extraction of Products of Conception, Low, Open Approach (ICD-10-PCS; principal; 2017-07-21)
PROC: 0UB90ZZ Excision of Uterus, Open Approach (ICD-10-PCS; 2017-07-21)
DX: O34.212 Maternal care for vertical scar from previous cesarean delivery (principal); O36.5932 Maternal care for other known or suspected poor fetal growth, third trimester, fetus 2; Z3A.35 35 weeks gestation of pregnancy; Z37.2 Twins, both liveborn; Z88.8 Allergy status to other drugs, medicaments and biological substances; O90.81 Anemia of the puerperium; D64.9 Anemia, unspecified; O90.89 Other complications of the puerperium, not elsewhere classified; M54.5 Low back pain; O34.10 Maternal care for benign tumor of corpus uteri, unspecified trimester; D25.9 Leiomyoma of uterus, unspecified
CPT/HCPCS: 36415; 76815; 85014; 85018; 85025; 86850; 86900; 86901; 88305; 99211; A6250; C9250; G0463; J0690; J1750; J1885; J2274; J2370; J2405; J2590; J2765; J7120; J7121